=== PATIENT | male | born 1935 | race Caucasian/White ===

== ENCOUNTER 2017-06-13 10:09 | Day surgery (SDC) | payer MEDICARE, BC ==
[~2017-06-13 10:09] MED LIST: Lactated Ringers 1,000 ML IV SCH; Propofol 200 MG/20 ML SDV ONE
--- NOTE | 2017-06-13 11:09 | PCM.PREANE ---
Preanesthetic Assessment - Anesthesia/Transfusion/Family Hx Anesthesia History: Prior Anesthesia Without Reaction Family History of Anesthesia Reaction: No Transfusion History: No Prior Transfusion(s) - Review of Systems General: No Symptoms Pulmonary: No Symptoms Cardiovascular: No Symptoms Gastrointestinal: Hematochezia Neurological: No Symptoms Other: Reports: None - Physical Assessment NPO Status Date: 06/12/17 Height: 1.78 m Weight: 128.82 kg ASA Class: 2 Mental Status: Alert & Oriented x3 Airway Class: Mallampati = 2 Dentition: Reports: Broken Tooth/Teeth (chipped central maxillary incisor) ROM/Head Extension: Full Lungs: Clear to Auscultation, Normal Respiratory Effort Cardiovascular: Regular Rate, Regular Rhythm - Allergies Allergies/Adverse Reactions: Allergies Allergy/AdvReac Type Severity Reaction Status Date / Time No Known Allergies Allergy Verified 02/16/14 18:33 - Acknowledgements Anesthesia Type Planned: MAC Pt an Appropriate Candidate for the Planned Anesthesia: Yes Alternatives and Risks of Anesthesia Discussed w Pt/Guardian: Yes Pt/Guardian Understands and Agrees with Anesthesia Plan: Yes PreAnesthesia Questionnaire HEENT History: Reports: Hard of Hearing, Other (See Below) Other HEENT History: wears glasses Cardiovascular History: Reports: High Cholesterol, Hypertension, Other (See Below) Other Cardiovascular History: peripheral edema Gastrointestinal History: Reports: Colon Polyp Genitourinary History: Reports: BPH 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, Peripheral Endocrine/Metabolic History: Reports: Diabetes, Type II, Obesity/BMI 30+ Oncologic (Cancer) History: Reports: Basal Cell Carcinoma Dermatologic History: Reports: Other (See Below) Other Dermatologic History: stasis dermatitis - Past Surgical History Head Surgeries/Procedures: Reports: None HEENT Surgical History: Reports: Naso-Sinus Surgery GI Surgical History: Reports: Appendectomy, Colonoscopy Dermatological Surgical History: Reports: Skin Biopsy - SUBSTANCE USE Smoking Status *Q: Never Smoker Days Per Week of Alcohol Use: 0 Recreational Drug Use History: No - HOME MEDS Home Medications: Home Meds Finasteride [Proscar] 5 mg PO DAILY 02/16/14 [History] Furosemide [Lasix] 0.5 - 2 tab PO ASDIRECTED PRN 02/16/14 [History] Losartan [Cozaar] 25 mg PO DAILY 02/16/14 [History] Pravastatin Sodium [Pravastatin (Pravachol)] 40 mg PO DAILY 02/16/14 [History] Tamsulosin [Tamsulosin 24 Hr] 0.4 mg PO DAILY 02/16/14 [History] Triamcinolone Acetonide [Triamcinolone Acetonide 0.1% Crm] 1 applic TOP ASDIRECTED PRN 02/16/14 [History] metFORMIN [metFORMIN XR] 500 mg PO BIDM 02/16/14 [History] Metoprolol Succinate 50 mg PO DAILY 06/10/17 [History] Potassium Chloride 20 meq PO ASDIRECTED 06/10/17 [History] - CURRENT (IN HOUSE) MEDS Current Meds: Current Medications Lactated Ringer's (Ringers, Lactated) 1,000 mls @ 125 mls/hr IV ASDIRECTED BENI Last Admin: 06/13/17 10:38 Dose: 125 mls/hr Discontinued Medications Lidocaine HCl (Xylocaine-Mpf 1%) Confirm Administered Dose 5 ml .ROUTE .STK-MED ONE Stop: 06/13/17 09:12 Propofol (Diprivan 20 Ml) Confirm Administered Dose 400 mg .ROUTE .STK-MED ONE Stop: 06/13/17 09:12
--- NOTE | 2017-06-13 12:09 | PCM.OPNOTE ---
- General Post-Op/Procedure Note Date of Surgery/Procedure: 06/13/17 Operative Procedure(s): Colonoscopy Pre Op Diagnosis: Intermittent rectal bleeding. Personal history of colon polyps Anesthesia Technique: MAC (ASA II) Primary Surgeon: Edgardo Silveira Condition: Good Free Text/Narrative:: Dictation [id number] CPT CODE [id number]
--- NOTE | 2017-06-13 12:13 | PCM.POSTAN ---
POST ANESTHESIA ASSESSMENT - MENTAL STATUS Mental Status: Alert, Oriented - RESPIRATORY Respiratory Status: Respiratory Rate WNL, Airway Patent, O2 Saturation Stable - CARDIOVASCULAR CV Status: Pulse Rate WNL, Blood Pressure Stable - GASTROINTESTINAL GI Status: No Symptoms - POST OP HYDRATION Hydration Status: Adequate & Stable
[2017-06-13] MEDS ORDERED: Lactated Ringers 1,000 ML IV SCH (12:15)
[2017-06-13 12:46] VITALS: BP 140/77
--- NOTE | 2017-06-13 17:53 | OR ---
SURGEON: Edgardo Silveira M.D. DATE OF PROCEDURE: 06/13/2017 OPERATION PERFORMED: Colonoscopy. ANESTHESIA: MAC. ASA CLASSIFICATION: II. PREOPERATIVE DIAGNOSES: 1. Intermittent rectal bleeding. 2. Personal history of colon polyps. POSTOPERATIVE DIAGNOSIS: Sigmoid diverticulosis. DESCRIPTION OF PROCEDURE: The patient was taken to the endoscopy room and positioned on the endoscopy table in the left lateral decubitus position. Time-out was called for appropriate identification of the patient and procedure. Monitored anesthesia care was provided. The colonoscope was inserted into the rectum and advanced with minimal difficulty to the cecum, where the colonoscope was retroflexed to visualize the ascending colon from below. The colonoscope was then straightened and slowly withdrawn. The cecum, ascending colon, hepatic flexure, transverse colon, splenic flexure, and descending colon showed no tumors, polyps, diverticula, or angiodysplastic changes. Once the colonoscope was withdrawn to the sigmoid colon, one could see significant diverticular change. No stricture, spasm, or bleeding was noted. No sigmoid polyps were encountered. The colonoscope was withdrawn to the rectum and retroflexed to visualize the anal orifice from above. Again, no tumors or polyps were seen and there were no acute hemorrhoidal changes. The colonoscope was then straightened, the rectum aspirated, and the colonoscope removed. The patient tolerated the procedure well and was taken to recovery room in stable condition. DRE RENAE /[id number]
== END 2017-06-13 12:45 | disposition home or self-care (01) ==
LOC: MW.SDS 10:09
PROVIDERS: ATTEND Surgery
DX: K57.30 Diverticulosis of large intestine without perforation or abscess without bleeding (principal); Z86.010 Personal history of colon polyps; E11.42 Type 2 diabetes mellitus with diabetic polyneuropathy; E11.69 Type 2 diabetes mellitus with other specified complication; E78.5 Hyperlipidemia, unspecified; I10 Essential (primary) hypertension; N40.0 Benign prostatic hyperplasia without lower urinary tract symptoms; E66.9 Obesity, unspecified; Z85.828 Personal history of other malignant neoplasm of skin; Z79.84 Long term (current) use of oral hypoglycemic drugs; Z79.899 Other long term (current) drug therapy; Z90.49 Acquired absence of other specified parts of digestive tract; Z98.890 Other specified postprocedural states; Z68.41 Body mass index [BMI] 40.0-44.9, adult
CPT/HCPCS: 45378; J7120; 00810; J2704

== ENCOUNTER 2017-08-18 15:56 | Emergency (ER) | payer MEDICARE, BC ==
[2017-08-18] MEDS ORDERED: Lidocaine 1% 20 ML MDV INJECT ONE (18:08)
[2017-08-18] MEDS ORDERED: Diphtheria,Pertussis(Acell),Tetanus Vaccine 0.5 ML Syringe IM ONE (18:08)
--- NOTE | 2017-08-18 18:11 | EDM.PDOC ---
ED HPI GENERAL MEDICAL PROBLEM - General Chief Complaint: Laceration Stated Complaint: CUT ON FINGERS Time Seen by Provider: 08/18/17 18:09 Source of Information: Reports: Patient History Limitations: Reports: No Limitations - History of Present Illness INITIAL COMMENTS - FREE TEXT/NARRATIVE: HISTORY AND PHYSICAL: History of present illness: Patient is a 81-year-old male who presents to the emergency room with a crush injury to the left second digit. He states he was closing the garage door and his finger got pinched in the closing mechanism. Has a laceration/skin tear to the third distal digit and second distal digit, both near the nailbed. Open laceration to the pad of the second digit. Bleeding is controlled with pressure. Review of systems: As per history of present illness and below otherwise all systems reviewed and negative. Past medical history: As per history of present illness and as reviewed below otherwise noncontributory. Surgical history: As per history of present illness and as reviewed below otherwise noncontributory. Social history: No reported history of drug or alcohol abuse. Family history: As per history of present illness and as reviewed below otherwise noncontributory. Physical exam: Gen.: Well-developed and well-nourished 81-year-old male. Alert and oriented. Appears in no acute distress. HEENT: Atraumatic, normocephalic, pupils reactive, negative for conjunctival pallor or scleral icterus, mucous membranes moist, throat clear, neck supple, nontender, trachea midline. Lungs: Clear to auscultation, breath sounds equal bilaterally, chest nontender. Heart: S1S2, regular rate and rhythm Abdomen: Soft, nondistended, nontender. Negative for masses or hepatosplenomegaly. Negative for costovertebral tenderness. Extremities: Moves all extremities per self. All digits have good flexion and extension. He is able to push against my fingertip appropriately and resist force against my finger as well. The nailbeds are intact to all digits, although has discoloration to the bed of the nail on #2 and #3. Capillary refill is less than 3 seconds. Radial pulses bilaterally. Able to close his fist and extend. Neurovascular unremarkable. Denies any numbness or tingling to the digits. Skin: Second digit: He has a 1 cm skin tear low the nailbed, nonsuturable, nonbleeding. There is a vertical 1.5 cm laceration to the lateral finger, palmar side. Extending from the 1.5 cm there is a diagonal laceration that wraps up towards the distal finger measuring 2 cm, open. Neuro: Awake, alert, oriented. Cranial nerves II through XII unremarkable. Cerebellum unremarkable. Motor and sensory unremarkable throughout. Exam nonfocal. Patient is soaking his finger/hand and chlorhexidine/normal saline. 1800- I did contact Dr. Carmel Peck to consult on this patient. She states it is fine to close the wound with sutures, providing a bulky dressing, antibiotic prophylaxis. She states she will see him in the clinic tomorrow for reevaluation. Keflex 500 mg, 1 tab twice daily 10 days. Norflex 5/325 grams 1 tab every 4-6 hours as needed for pain, dispense 20-refills. Dr. Peck will see the patient tomorrow in the clinic. I reviewed with the patient signs and symptoms of infection. He voices understanding and will follow up with [facility] tomorrow. He denies any further questions at this time. Diagnostics: X-ray of left hand Therapeutics: Tdap, 1% lidocaine, nonstick dressing with cage splint A digital block was performed with 1% lidocaine at the base of the second digit. Area was irrigated with wound wash and cleansed with chlorhexidine. Chromic gut, 5-0 small needle was used (per Dr. Peck's recommendation). 9 interrupted sutures were placed. Steri-Strips were placed to the suprafascial lacerations/skin tear to the nailbed on digit #2 and digit #3. Nonstick dressing is applied to both digit #2 and digit #3. A cage splint was applied to digit #2. Impression: Open tuft fracture, left second digit Plan: 1. Please take your antibiotic as prescribed. Keflex 500 mg, 1 tab twice daily 10 days. Keep the wound clean and dry. The dressing that was placed today in the ER, please keep this on until evaluated by our hand surgeon, Dr. Peck. She would like to see you tomorrow in clinic. Her office is located [facility]. Her nurse, Bambi will call you in the morning for an appointment time. If you do not hear from her please call the number that has been given to you to set up this time. 2. [place] 5/325mg 1 tab every 4-6 hours as needed for pain. This medication will make you drowsy so do not take it while needing to be functioning at work or while driving. He may take ibuprofen for pain management. 3. Please return to the ED as needed and as discussed. Definitive disposition and diagnosis as appropriate pending reevaluation and review of above. Onset: Today Duration: Hour(s): Location: Reports: Upper Extremity, Left left 2-4th digit Pain Score (Numeric/FACES): 8 - Related Data Allergies Allergy/AdvReac Type Severity Reaction Status Date / Time No Known Allergies Allergy Verified 08/18/17 16:20 Home Meds: Home Meds Finasteride [Proscar] 5 mg PO DAILY 02/16/14 [History] Furosemide [Lasix] 0.5 - 2 tab PO ASDIRECTED PRN 02/16/14 [History] Losartan [Cozaar] 25 mg PO DAILY 02/16/14 [History] Pravastatin Sodium [Pravastatin (Pravachol)] 40 mg PO DAILY 02/16/14 [History] Tamsulosin [Tamsulosin 24 Hr] 0.4 mg PO DAILY 02/16/14 [History] Triamcinolone Acetonide [Triamcinolone Acetonide 0.1% Crm] 1 applic TOP ASDIRECTED PRN 02/16/14 [History] metFORMIN [metFORMIN XR] 500 mg PO BIDM 02/16/14 [History] Metoprolol Succinate 50 mg PO DAILY 06/10/17 [History] Potassium Chloride 20 meq PO ASDIRECTED 06/10/17 [History] Past Medical History HEENT History: Reports: Hard of Hearing, Other (See Below) Other HEENT History: wears glasses Cardiovascular History: Reports: High Cholesterol, Hypertension, Other (See Below) Other Cardiovascular History: peripheral edema Gastrointestinal History: Reports: Colon Polyp Genitourinary History: Reports: BPH 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, Peripheral Endocrine/Metabolic History: Reports: Diabetes, Type II, Obesity/BMI 30+ Oncologic (Cancer) History: Reports: Basal Cell Carcinoma Dermatologic History: Reports: Other (See Below) Other Dermatologic History: stasis dermatitis - Past Surgical History Head Surgeries/Procedures: Reports: None HEENT Surgical History: Reports: Naso-Sinus Surgery GI Surgical History: Reports: Appendectomy, Colonoscopy Dermatological Surgical History: Reports: Skin Biopsy Social & Family History - Tobacco Use Smoking Status *Q: Never Smoker - Caffeine Use Caffeine Use: Reports: Soda - Alcohol Use Days Per Week of Alcohol Use: 0 - Recreational Drug Use Recreational Drug Use: No ED ROS GENERAL - Review of Systems Review Of Systems: ROS reveals no pertinent complaints other than HPI. ED EXAM, SKIN/RASH Exam: See Below (See dictation) ED SKIN PROCEDURES - Laceration/Wound Repair Left Hand Appearance: Linear Anesthetic Type: Digital Local Anesthesia - Lidocaine (Xylocaine): 1% Plain Local Anesthetic Volume: 5cc Skin Prep: Chlorhexidine (Hibiciens), Saline, Sterile Drape, Other (Wound wash) Exploration/Debridement/Repair: Wound Explored, In a Bloodless Field, No Foreign Material Found Closed with: Sutures Suture Size: other (5-0) Suture Type: Other (Chromic) Course - Vital Signs Last Recorded V/S: Last Vital Signs Temp 98.4 F 08/18/17 16:21 Pulse 61 08/18/17 16:21 Resp 18 08/18/17 16:21 BP 176/84 H 08/18/17 16:21 Pulse Ox 95 08/18/17 16:21 - Orders/Labs/Meds Orders: Active Orders 24 hr Category Date Time Status Communication Order [RC] STAT Care 08/18/17 18:08 Ordered Vaccines to be Administered [RC] PER UNIT ROUTINE Care 08/18/17 18:09 Ordered Hand Comp Min 3V Lt [CR] Stat Exams 08/18/17 16:27 Taken Meds: Medications Discontinued Medications Generic Name Dose Route Start Last Admin Trade Name Roosevelt PRN Reason Stop Dose Admin Diphtheria/Tetanus/Acell Pertussis 0.5 ml 08/18/17 18:08 Adacel IM 08/18/17 18:09 .ONCE ONE Lidocaine HCl 20 ml 08/18/17 18:08 Xylocaine 1% INJECT 08/18/17 18:09 ONETIME ONE Departure - Departure Time of Disposition: 18:58 Disposition: Home, Self-Care 01 Clinical Impression: Open fracture of tuft of distal phalanx of finger - Discharge Information Referrals: Akira Bauer MD [Primary Care Provider] - Forms: ED Department Discharge Additional Instructions: My general discharge The following information is given to patients seen in the emergency department who are being discharged to home. This information is to outline your options for follow-up care. We provide all patients seen in our emergency department with a follow-up referral. The need for follow-up, as well as the timing and circumstances, are variable depending upon the specifics of your emergency department visit. If you don't have a primary care physician on staff, we will provide you with a referral. We always advise you to contact your personal physician following an emergency department visit to inform them of the circumstance of the visit and for follow-up with them and/or the need for any referrals to a consulting specialist. The emergency department will also refer you to a specialist when appropriate. This referral assures that you have the opportunity for follow-up care with a specialist. All of these measure are taken in an effort to provide you with optimal care, which includes your follow-up. Under all circumstances we always encourage you to contact your private physician who remains a resource for coordinating your care. When calling for follow-up care, please make the office aware that this follow-up is from your recent emergency room visit. If for any reason you are refused follow-up, please contact the [facility] Emergency Department at and asked to speak to the emergency department charge nurse. [facility] - Plastic Surgery [address], [address] [place] [address] 1. Please take your antibiotic as prescribed. Keflex 500 mg, 1 tab twice daily 10 days. Keep the wound clean and dry. The dressing that was placed today in the ER, please keep this on until evaluated by our hand surgeon, Dr. Peck. She would like to see you tomorrow in clinic. [facility] Her nurse, Bambi will call you in the morning for an appointment time. If you do not hear from her please call the number that has been given to you to set up this time. 2. [place] 5/325mg 1 tab every 4-6 hours as needed for pain. This medication will make you drowsy so do not take it while needing to be functioning at work or while driving. He may take ibuprofen for pain management. 3. Please return to the ED as needed and as discussed. - My Orders Last 24 Hours: My Active Orders 08/18/17 16:27 Hand Comp Min 3V Lt [CR] Stat 08/18/17 18:08 Communication Order [RC] STAT 08/18/17 18:09 Vaccines to be Administered [RC] PER UNIT ROUTINE - Assessment/Plan Last 24 Hours: My Active Orders 08/18/17 16:27 Hand Comp Min 3V Lt [CR] Stat 08/18/17 18:08 Communication Order [RC] STAT 08/18/17 18:09 Vaccines to be Administered [RC] PER UNIT ROUTINE
[2017-08-18 20:09] VITALS: BP 140/82
--- NOTE | 2017-08-19 15:28 | CR ---
EXAM DATE: 08/18/17 PATIENT'S AGE: 81 Patient: [facility] Facility: [place], [place] Site . Site : [id number] Study: XRay Extremity Left hand [id number]/18/[id number] 5:12:30 PM Ordering Physician: Doctor Garcia Final Report: HISTORY: Crush injury to the distal 2nd, 3rd and 4th fingers. FINDINGS: Three views of left hand demonstrate a ring on the 4th finger. There is mild decreased joint space between the carpals. Decreased joint space mild spurring is seen at the 1st metacarpophalangeal joint and interphalangeal joint of the thumb as well as scattered throughout the interphalangeal joints of the fingers. There is a lucency seen through the proximal epiphysis of the middle phalanx of the 2nd finger along the radial aspect. This appears well corticated. There is an acute transverse fracture seen through the distal tuft of the index finger with trace dorsal displacement of the distal fracture fragment. There is soft tissue defect of the distal 3rd finger. The 3rd and 4th fingers appear intact. IMPRESSION: Transverse minimally displaced fracture through the distal tuft of the 2nd finger. Dictated by Migdalia Vasquez MD @ 08/18/2017 5:58:29 PM Dictated by: Migdalia Vasquez MD @ 08/18/2017 17:58:38 (Electronic Signature) Report Signed by Proxy. RAFY
== END 2017-08-18 20:19 | disposition home or self-care (01) ==
LOC: MW.ED 15:56
DX: S62.631B Displaced fracture of distal phalanx of left index finger, initial encounter for open fracture (principal); S61.211A Laceration without foreign body of left index finger without damage to nail, initial encounter; Z23 Encounter for immunization; Z79.899 Other long term (current) drug therapy; I10 Essential (primary) hypertension; E11.9 Type 2 diabetes mellitus without complications; Z79.84 Long term (current) use of oral hypoglycemic drugs; E78.00 Pure hypercholesterolemia, unspecified; W23.0XXA Caught, crushed, jammed, or pinched between moving objects, initial encounter
CPT/HCPCS: 12001; 12002; 73130-26-LT; 73130-LT; 90471; 90715; 99283-25; 99284

== ENCOUNTER 2019-08-19 18:30 | Emergency (ER) | payer MEDICARE, BC ==
--- NOTE | 2019-08-19 20:47 | CR ---
HISTORY: Lower leg edema. COMPARISON: 07/21/2019 FINDINGS: A portable erect AP view of the chest was obtained at 20 0 4 hours. The lungs remain clear. No focal or diffuse infiltrates are present. The heart remains normal in size. The mediastinum is normal in appearance. The osseous structures are normal in appearance for the patient`s age. IMPRESSION: Normal portable chest single view. Dictated by Schuyler Donaldson MD @ Aug 19 2019 8:41PM Signed by Dr. Schuyler Donaldson @ Aug 19 2019 8:45PM
--- NOTE | 2019-08-19 21:26 | US ---
INDICATION: Bilateral leg edema and pain TECHNIQUE: : Ultrasound venous duplex lower extremity bilateral. Compression venous exam was performed using guerrero-scale, color Doppler, and spectral Doppler imaging. COMPARISON: Right leg ultrasound June 26, 2010 FINDINGS: Sonographic imaging demonstrates the common femoral, deep femoral, superficial femoral, popliteal, posterior tibial and greater saphenous veins to be fully compressible with normal color Doppler blood flow in both lower extremities. IMPRESSION: Normal bilateral lower extremity venous ultrasound, no sign of deep venous thrombosis. Dictated by Celeste Green MD @ Aug 19 2019 9:24PM Signed by Dr. Celeste Green @ Aug 19 2019 9:24PM
--- NOTE | 2019-08-19 23:58 | EDM.PDOC ---
ED HPI GENERAL MEDICAL PROBLEM - General Chief Complaint: Lower Extremity Injury/Pain Stated Complaint: LEGS CHECKED FOR BLOODCLOTS Time Seen by Provider: 08/19/19 19:38 Source of Information: Reports: Patient History Limitations: Reports: No Limitations - History of Present Illness INITIAL COMMENTS - FREE TEXT/NARRATIVE: 83 year-old gentleman presents emergency room chief complaint of swelling in both legs. Patient has a previous recent surgery and was told to come in and get checked out. Patient complains of left leg is more sore than right leg. Patient currently on Lasix despite that he still having swelling. She denies fever chills nausea or vomiting. Onset: Gradual Duration: Day(s): Location: Reports: Lower Extremity, Left Quality: Reports: Pressure Severity: Mild Improves with: Reports: None Worsens with: Reports: None Associated Symptoms: Reports: No Other Symptoms - Related Data Allergies Allergy/AdvReac Type Severity Reaction Status Date / Time No Known Allergies Allergy Verified 08/19/19 18:55 Home Meds: Home Meds Furosemide [Lasix] 0.5 - 2 tab PO ASDIRECTED PRN 02/16/14 [History] Losartan [Cozaar] 25 mg PO DAILY 02/16/14 [History] Pravastatin Sodium [Pravastatin (Pravachol)] 40 mg PO DAILY 02/16/14 [History] Triamcinolone Acetonide [Triamcinolone Acetonide 0.1% Crm] 1 applic TOP ASDIRECTED PRN 02/16/14 [History] metFORMIN [metFORMIN XR] 500 mg PO BIDM 02/16/14 [History] Metoprolol Succinate 50 mg PO DAILY 06/10/17 [History] Potassium Chloride 20 meq PO ASDIRECTED 06/10/17 [History] Past Medical History HEENT History: Reports: Hard of Hearing, Other (See Below) Other HEENT History: wears glasses Cardiovascular History: Reports: High Cholesterol, Hypertension, Other (See Below) Other Cardiovascular History: peripheral edema Gastrointestinal History: Reports: Colon Polyp Genitourinary History: Reports: BPH 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, Peripheral Endocrine/Metabolic History: Reports: Diabetes, Type II, Obesity/BMI 30+ Oncologic (Cancer) History: Reports: Basal Cell Carcinoma Dermatologic History: Reports: Other (See Below) Other Dermatologic History: stasis dermatitis - Infectious Disease History Infectious Disease History: Reports: Chicken Pox, Measles, Mumps - Past Surgical History Head Surgeries/Procedures: Reports: None HEENT Surgical History: Reports: Naso-Sinus Surgery GI Surgical History: Reports: Appendectomy, Colonoscopy Male Surgical History: Reports: Prostatectomy Dermatological Surgical History: Reports: Skin Biopsy Social & Family History - Family History Family Medical History: Noncontributory - Tobacco Use Smoking Status *Q: Never Smoker - Caffeine Use Caffeine Use: Reports: Coffee - Recreational Drug Use Recreational Drug Use: No Review of Systems - Review of Systems Review Of Systems: See Below Constitutional: Reports: No Symptoms Eyes: Reports: No Symptoms Ears: Reports: No Symptoms Nose: Reports: No Symptoms Mouth/Throat: Reports: No Symptoms Respiratory: Reports: No Symptoms. Denies: Shortness of Breath, Wheezing, Pleuritic Chest Pain Cardiovascular: Reports: No Symptoms GI/Abdominal: Reports: No Symptoms Genitourinary: Reports: No Symptoms Musculoskeletal: Reports: Leg Pain, Other (Swelling in the lower leg) Neurological: Reports: No Symptoms Psychiatric: Reports: No Symptoms ED EXAM, GENERAL - Physical Exam Exam: See Below Exam Limited By: No Limitations General Appearance: Alert, WD/WN, No Apparent Distress Eye Exam: Bilateral Eye: Normal Fundi, Normal Inspection Ear Exam: Bilateral Ear: Auricle Normal, Canal Normal, TM normal Nose: Normal Inspection, Normal Mucosa, No Blood Throat/Mouth: Normal Inspection, Normal Lips, Normal Teeth, Normal Gums, Normal Oropharynx, Normal Voice, No Airway Compromise Head: Atraumatic, Normocephalic Neck: Normal Inspection, Supple, Non-Tender, Full Range of Motion Respiratory/Chest: No Respiratory Distress, Lungs Clear, Normal Breath Sounds Cardiovascular: Normal Peripheral Pulses, Regular Rate, Rhythm, No Edema, No Gallop, No JVD, No Murmur GI/Abdominal: Normal Bowel Sounds, Soft, Non-Tender, No Organomegaly, No Distention, No Abnormal Bruit (Male) Exam: No Hernia, Normal Inspection Back Exam: Normal Inspection Extremities: Pedal Edema. No: Sari's Sign, Increased Warmth Neurological: Alert, Oriented, CN II-XII Intact, Normal Cognition, Normal Gait, Normal Reflexes, No Motor/Sensory Deficits Psychiatric: Normal Affect Skin Exam: Warm Lymphatic: No Adenopathy Course - Vital Signs Last Recorded V/S: Last Vital Signs Temp 98.8 F 08/19/19 19:03 Pulse 82 08/19/19 19:03 Resp 18 08/19/19 19:03 BP 114/95 H 08/19/19 19:03 Pulse Ox 94 L 08/19/19 19:03 - Orders/Labs/Meds Orders: Active Orders 24 hr Category Date Time Status EKG Documentation Completion [RC] STAT Care 08/19/19 19:50 Active CULTURE URINE [RM] Stat Lab 08/19/19 21:50 Received Labs: Laboratory Tests 08/19/19 08/19/19 08/19/19 Range/Units 21:50 22:14 22:14 WBC 12.39 H (4.0-11.0) K/uL RBC 3.84 L (4.50-5.90) M/uL Hgb 12.1 L (13.0-17.0) g/dL Hct 36.9 L (38.0-50.0) % MCV 96.1 (80.0-98.0) fL MCH 31.5 (27.0-32.0) pg MCHC 32.8 (31.0-37.0) g/dL RDW Std Deviation 47.3 (28.0-62.0) fl RDW Coeff of Juan Miguel 14 (11.0-15.0) % Plt Count 291 (150-400) K/uL MPV 10.40 (7.40-12.00) fL Neut % (Auto) 61.6 (48.0-80.0) % Lymph % (Auto) 27.3 (16.0-40.0) % [place] % (Auto) 8.6 (0.0-15.0) % Eos % (Auto) 2.3 (0.0-7.0) % Baso % (Auto) 0.2 (0.0-1.5) % Neut # (Auto) 7.6 H (1.4-5.7) K/uL Lymph # (Auto) 3.4 H (0.6-2.4) K/uL Wallace # (Auto) 1.1 H (0.0-0.8) K/uL Eos # (Auto) 0.3 (0.0-0.7) K/uL Baso # (Auto) 0.0 (0.0-0.1) K/uL Nucleated RBC % 0.0 /100WBC Nucleated RBCs # 0 K/uL Sodium 138 (136-148) mmol/L Potassium 4.0 (3.5-5.1) mmol/L Chloride 101 (98-107) mmol/L Carbon Dioxide 25.0 (21.0-32.0) mmol/L BUN 23 H (7.0-18.0) mg/dL Creatinine 1.3 (0.8-1.3) mg/dL Est Cr Clr Drug Dosing 46.01 mL/min Estimated GFR (MDRD) 53.0 ml/min Glucose 135 H (74-106) mg/dL Calcium 9.1 (8.5-10.1) mg/dL Total Bilirubin 0.3 (0.2-1.0) mg/dL AST 25 (15-37) IU/L ALT 40 (14-63) IU/L Alkaline Phosphatase 88 (46-116) U/L B-Natriuretic Peptide (<100) PG/ML Total Protein 8.4 H (6.4-8.2) g/dL Albumin 4.0 (3.4-5.0) g/dL Globulin 4.4 H (2.6-4.0) g/dL Albumin/Globulin Ratio 0.9 (0.9-1.6) Urine Color YELLOW Urine Appearance CLEAR Urine pH 5.5 (5.0-8.0) Ur Specific [place] >= 1.030 (1.001-1.035) Urine Protein 100 H (NEGATIVE) mg/dL Urine Glucose (UA) NEGATIVE (NEGATIVE) mg/dL Urine Ketones NEGATIVE (NEGATIVE) mg/dL Urine Occult Blood LARGE H (NEGATIVE) Urine Nitrite NEGATIVE (NEGATIVE) Urine Bilirubin NEGATIVE (NEGATIVE) Urine Urobilinogen 0.2 (<2.0) EU/dL Ur Leukocyte Esterase SMALL H (NEGATIVE) Urine RBC 10-15 (0-2/HPF) Urine WBC 3-5 (0-5/HPF) Ur Epithelial Cells RARE (NONE-FEW) Urine Bacteria 1+ H (NEGATIVE) 08/19/19 Range/Units 22:14 WBC (4.0-11.0) K/uL RBC (4.50-5.90) M/uL Hgb (13.0-17.0) g/dL Hct (38.0-50.0) % MCV (80.0-98.0) fL MCH (27.0-32.0) pg MCHC (31.0-37.0) g/dL RDW Std Deviation (28.0-62.0) fl RDW Coeff of Juan Miguel (11.0-15.0) % Plt Count (150-400) K/uL MPV (7.40-12.00) fL Neut % (Auto) (48.0-80.0) % Lymph % (Auto) (16.0-40.0) % Wallace % (Auto) (0.0-15.0) % Eos % (Auto) (0.0-7.0) % Baso % (Auto) (0.0-1.5) % Neut # (Auto) (1.4-5.7) K/uL Lymph # (Auto) (0.6-2.4) K/uL [place] # (Auto) (0.0-0.8) K/uL Eos # (Auto) (0.0-0.7) K/uL Baso # (Auto) (0.0-0.1) K/uL Nucleated RBC % /100WBC Nucleated RBCs # K/uL Sodium (136-148) mmol/L Potassium (3.5-5.1) mmol/L Chloride (98-107) mmol/L Carbon Dioxide (21.0-32.0) mmol/L BUN (7.0-18.0) mg/dL Creatinine (0.8-1.3) mg/dL Est Cr Clr Drug Dosing mL/min Estimated GFR (MDRD) ml/min Glucose (74-106) mg/dL Calcium (8.5-10.1) mg/dL Total Bilirubin (0.2-1.0) mg/dL AST (15-37) IU/L ALT (14-63) IU/L Alkaline Phosphatase (46-116) U/L B-Natriuretic Peptide 26 (<100) PG/ML Total Protein (6.4-8.2) g/dL Albumin (3.4-5.0) g/dL Globulin (2.6-4.0) g/dL Albumin/Globulin Ratio (0.9-1.6) Urine Color Urine Appearance Urine pH (5.0-8.0) Ur Specific [place] (1.001-1.035) Urine Protein (NEGATIVE) mg/dL Urine Glucose (UA) (NEGATIVE) mg/dL Urine Ketones (NEGATIVE) mg/dL Urine Occult Blood (NEGATIVE) Urine Nitrite (NEGATIVE) Urine Bilirubin (NEGATIVE) Urine Urobilinogen (<2.0) EU/dL Ur Leukocyte Esterase (NEGATIVE) Urine RBC (0-2/HPF) Urine WBC (0-5/HPF) Ur Epithelial Cells (NONE-FEW) Urine Bacteria (NEGATIVE) Departure - Departure Time of Disposition: 00:01 Disposition: Home, Self-Care 01 Condition: Good Clinical Impression: Pedal edema - Discharge Information *PRESCRIPTION DRUG MONITORING PROGRAM REVIEWED*: No Instructions: Peripheral Edema, Edema, [id number] Referrals: Akira Bauer MD [Primary Care Provider] - Sepsis Event Note - Evaluation Sepsis Screening Result: No Definite Risk - Focused Exam Vital Signs: Vital Signs Temp Pulse Resp BP Pulse Ox 08/19/19 19:03 98.8 F 82 18 114/95 H 94 L Date Exam was Performed: 08/19/19 Time Exam was Performed: 23:52
[2019-08-20 01:10] VITALS: BP 139/61; PULSE 84
== END 2019-08-20 00:24 | disposition home or self-care (01) ==
LOC: MW.ED 18:30
DX: R60.0 Localized edema (principal); I10 Essential (primary) hypertension; E11.42 Type 2 diabetes mellitus with diabetic polyneuropathy; E78.00 Pure hypercholesterolemia, unspecified; E66.9 Obesity, unspecified; Z68.38 Body mass index [BMI] 38.0-38.9, adult; Z79.899 Other long term (current) drug therapy; Z79.84 Long term (current) use of oral hypoglycemic drugs
CPT/HCPCS: 36415; 71045; 71045-26; 80053; 81001; 83880; 85025; 87086; 93005; 93970; 93970-26; 99284-25

== ENCOUNTER 2019-11-13 17:09 | Emergency (ER) | payer MEDICARE, BC ==
--- NOTE | 2019-11-13 17:55 | EDM.PDOC ---
ED HPI GENERAL MEDICAL PROBLEM - General Chief Complaint: Abdominal Pain Stated Complaint: ABD LOWER RIGHT PAIN Time Seen by Provider: 11/13/19 17:15 Source of Information: Reports: Patient History Limitations: Reports: No Limitations - History of Present Illness INITIAL COMMENTS - FREE TEXT/NARRATIVE: HISTORY OF PRESENT ILLNESS: Patient is a 84-year-old male who presents the ER with abdominal pain. Patient has 3 day history of RUQ pain (triage states RLQ, but points to his RUQ) . Pain is intermittent and 8/10 when it occurs, presently 0/10. States pain will occasionally wrap around to his back. Denies any alcohol use or history of gallstones. Denies any present pain. Denies any nausea, vomiting, diarrhea, or constipation. No melena or hematochezia. No urinary symptoms. No chest pain or dyspnea. No syncope. No rash. Patient has history of appendectomy. REVIEW OF SYSTEMS: Other than the symptoms associated with the present events, the following is reported with regard to recent health: General: (-) fever. HENT: (-) congestion. Respiratory: (-) cough. Cardiovascular: (-) chest pain. GI: (+) abdominal pain. : (-) urinary complaints. Musculoskeletal: (-) other aches or pains. Endocrine: (-) generalized weakness. Neurological: (-) localized weakness. Skin: (-) rash PAST MEDICAL HISTORY: reviewed as per nursing notes SOCIAL HISTORY: reviewed as per nursing notes, MEDICATIONS: Per nurse's note ALLERGIES: Per nurse's note, reviewed by me PHYSICAL EXAMINATION: GENERALIZED APPEARANCE: well developed, well nourished in no distress VITAL SIGNS: Per nurse's note, reviewed by me SKIN: Warm, dry; (-) cyanosis; (-) rash. HEAD: (-) scalp swelling, (-) tenderness. EYES: (-) conjunctival pallor, (-) scleral icterus. ENMT: (-) stridor; mucous membranes moist. NECK: (-) tenderness, (-) stiffness, CHEST AND RESPIRATORY: (-) rales, (-) rhonchi, (-) wheezes; breath sounds equal bilaterally. HEART AND CARDIOVASCULAR: (-) irregularity; (-) murmur, (-) gallop. ABDOMEN AND GI: Soft; (+)midepigastric and RUQ tenderness, (-) RLQ tenderness. (-) flank tenderness (-) guarding, (-) rebound, (-) palpable masses , (-) CVAT NEURO AND PSYCH: Alert. Cranial nerves grossly intact; strength symmetric. gait steady DIAGNOSTICS: CT abd/pelvis: as read by radiologist, reviewed by myself EKG: nsr at [address] elevation. Labs ordered and reviewed by myself. EMERGENCY DEPARTMENT COURSE AND TREATMENT: Patient's condition remained stable during Emergency Department evaluation. Seen and evaluated at bedside. He currently denies any pain and therefore no pain medications were ordered at this time. Labs and diagnostics were ordered. UA borderline, pt asymptomatic, will await culture. The patient presents to the ED with abdominal pain. After history, physical exam, and diagnostic evaluation, the etiology for the pain is unclear. Laboratory data was ordered. On serial exams, there are no peritoneal signs. Abdomen is soft without guarding or rebound. I think there is a very low probability of significant abdominal pathology based on today's evaluation. The patient is advised to have a followup tomorrow for a recheck and repeat abdominal exam. I also advised to return to the emergency department immediately for significant pain, fevers, not tolerating oral food or fluid, or new complaints. PLAN AND FOLLOW-UP: Patient to follow-up with PCP in 1 to 2 days. Return immediately with any change in duration, severity, or character of abdominal pain or any new or worsening symptoms. Patient given discharge precautions. Expressed verbal understanding. RLQ Pain Score (Numeric/FACES): 8 - Related Data Allergies Allergy/AdvReac Type Severity Reaction Status Date / Time levofloxacin Allergy Other Verified 11/13/19 17:33 nitrofurantoin Allergy Other Verified 11/13/19 17:33 [From Macrobid] sulfamethoxazole Allergy Other Verified 11/13/19 17:33 [From Septra] trimethoprim [From Septra] Allergy Other Verified 11/13/19 17:33 Home Meds: Home Meds Furosemide [Lasix] 40 mg PO BID 02/16/14 [History] Losartan [Cozaar] 25 mg PO DAILY 02/16/14 [History] Pravastatin Sodium [Pravastatin (Pravachol)] 40 mg PO DAILY 02/16/14 [History] metFORMIN [metFORMIN XR] 500 mg PO BIDM 02/16/14 [History] Metoprolol Succinate 50 mg PO DAILY 06/10/17 [History] Potassium Chloride 10 meq PO ASDIRECTED 06/10/17 [History] Aspirin [Lo-Dose Aspirin EC] 81 mg PO DAILY 11/13/19 [History] B-Complex with Vitamin C [Super B Complex-Vitamin C] 1 tab PO DAILY 11/13/19 [ History] Cholecalciferol (Vitamin D3) [Vitamin D3] 2,000 unit PO DAILY 11/13/19 [History] Cyanocobalamin (Vitamin B12) [Vitamin B12] 1,000 mcg PO DAILY 11/13/19 [History] Multivitamin [Multiple Vitamins] 1 each PO DAILY 11/13/19 [History] Past Medical History HEENT History: Reports: Hard of Hearing, Other (See Below) Other HEENT History: wears glasses Cardiovascular History: Reports: High Cholesterol, Hypertension, Other (See Below) Other Cardiovascular History: peripheral edema Gastrointestinal History: Reports: Colon Polyp Genitourinary History: Reports: BPH 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, Peripheral Endocrine/Metabolic History: Reports: Diabetes, Type II, Obesity/BMI 30+ Oncologic (Cancer) History: Reports: Basal Cell Carcinoma Dermatologic History: Reports: Other (See Below) Other Dermatologic History: stasis dermatitis - Infectious Disease History Infectious Disease History: Reports: Chicken Pox, Measles, Mumps - Past Surgical History Head Surgeries/Procedures: Reports: None HEENT Surgical History: Reports: Naso-Sinus Surgery, Tonsillectomy GI Surgical History: Reports: Appendectomy, Colonoscopy Male Surgical History: Reports: Other (See Below) Other Male Surgeries/Procedures: HOLUP - Prostate sx Dermatological Surgical History: Reports: Skin Biopsy Social & Family History - Family History Family Medical History: Noncontributory - Tobacco Use Smoking Status *Q: Never Smoker - Caffeine Use Caffeine Use: Reports: Coffee - Recreational Drug Use Recreational Drug Use: No ED ROS GENERAL - Review of Systems Review Of Systems: See Below (see dictation) ED EXAM, GI/ABD - Physical Exam Exam: See Below (see dictation) Course - Vital Signs Last Recorded V/S: Last Vital Signs Temp 96.7 F L 11/13/19 18:05 Pulse 60 11/13/19 19:30 Resp 16 11/13/19 19:30 BP 170/91 H 11/13/19 19:30 Pulse Ox 97 11/13/19 19:30 - Orders/Labs/Meds Labs: Laboratory Tests 11/13/19 11/13/19 11/13/19 Range/Units 18:00 18:00 18:49 WBC 8.47 (4.0-11.0) K/uL RBC 4.32 L (4.50-5.90) M/uL Hgb 13.5 (13.0-17.0) g/dL Hct 41.5 (38.0-50.0) % MCV 96.1 (80.0-98.0) fL MCH 31.3 (27.0-32.0) pg MCHC 32.5 (31.0-37.0) g/dL RDW Std Deviation 46.2 (28.0-62.0) fl RDW Coeff of Juan Miguel 13 (11.0-15.0) % Plt Count 237 (150-400) K/uL MPV 10.80 (7.40-12.00) fL Neut % (Auto) 53.1 (48.0-80.0) % Lymph % (Auto) 35.4 (16.0-40.0) % [place] % (Auto) 8.6 (0.0-15.0) % Eos % (Auto) 2.7 (0.0-7.0) % Baso % (Auto) 0.2 (0.0-1.5) % Neut # (Auto) 4.5 (1.4-5.7) K/uL Lymph # (Auto) 3.0 H (0.6-2.4) K/uL [place] # (Auto) 0.7 (0.0-0.8) K/uL Eos # (Auto) 0.2 (0.0-0.7) K/uL Baso # (Auto) 0.0 (0.0-0.1) K/uL Nucleated RBC % 0.0 /100WBC Nucleated RBCs # 0 K/uL Sodium 140 (136-148) mmol/L Potassium 4.0 (3.5-5.1) mmol/L Chloride 102 (98-107) mmol/L Carbon Dioxide 28.2 (21.0-32.0) mmol/L BUN 20 H (7.0-18.0) mg/dL Creatinine 1.2 (0.8-1.3) mg/dL Est Cr Clr Drug Dosing 49.00 mL/min Estimated GFR (MDRD) 58.0 ml/min Glucose 125 H (74-106) mg/dL Calcium 8.9 (8.5-10.1) mg/dL Total Bilirubin 0.4 (0.2-1.0) mg/dL AST 19 (15-37) IU/L ALT 32 (14-63) IU/L Alkaline Phosphatase 84 (46-116) U/L Total Protein 7.7 (6.4-8.2) g/dL Albumin 3.9 (3.4-5.0) g/dL Globulin 3.8 (2.6-4.0) g/dL Albumin/Globulin Ratio 1.0 (0.9-1.6) Lipase 142 (73-393) U/L Urine Color YELLOW Urine Appearance SLT CLOUDY Urine pH 6.0 (5.0-8.0) Ur Specific [place] 1.015 (1.001-1.035) Urine Protein NEGATIVE (NEGATIVE) mg/dL Urine Glucose (UA) NEGATIVE (NEGATIVE) mg/dL Urine Ketones NEGATIVE (NEGATIVE) mg/dL Urine Occult Blood NEGATIVE (NEGATIVE) Urine Nitrite NEGATIVE (NEGATIVE) Urine Bilirubin NEGATIVE (NEGATIVE) Urine Urobilinogen 0.2 (<2.0) EU/dL Ur Leukocyte Esterase TRACE H (NEGATIVE) Urine RBC 0-1 (0-2/HPF) Urine WBC 12-15 (0-5/HPF) Ur Epithelial Cells RARE (NONE-FEW) Urine Bacteria RARE (NEGATIVE) Meds: Medications Discontinued Medications Generic Name Dose Route Start Last Admin Trade Name Edmundoq PRN Reason Stop Dose Admin Iopamidol 100 ml 11/13/19 18:56 Isovue Multipack-370 (76%) IVPUSH 11/13/19 18:57 ONETIME STA Departure - Departure Time of Disposition: 19:13 Disposition: Home, Self-Care 01 Condition: Good Clinical Impression: Abdominal pain - Discharge Information *PRESCRIPTION DRUG MONITORING PROGRAM REVIEWED*: Not Applicable *COPY OF PRESCRIPTION DRUG MONITORING REPORT IN PATIENT BRENDA: Not Applicable Instructions: Abdominal Pain, Adult Referrals: Akira Bauer MD [Primary Care Provider] - 2 Days Forms: ED Department Discharge Additional Instructions: The following information is given to patients seen in the emergency department who are being discharged to home. This information is to outline your options for follow-up care. We provide all patients seen in our emergency department with a follow-up referral. The need for follow-up, as well as the timing and circumstances, are variable depending upon the specifics of your emergency department visit. If you don't have a primary care physician on staff, we will provide you with a referral. We always advise you to contact your personal physician following an emergency department visit to inform them of the circumstance of the visit and for follow-up with them and/or the need for any referrals to a consulting specialist. The emergency department will also refer you to a specialist when appropriate. This referral assures that you have the opportunity for follow-up care with a specialist. All of these measure are taken in an effort to provide you with optimal care, which includes your follow-up. Under all circumstances we always encourage you to contact your private physician who remains a resource for coordinating your care. When calling for follow-up care, please make the office aware that this follow-up is from your recent emergency room visit. If for any reason you are refused follow-up, please contact the [facility] Emergency Department at and asked to speak to the emergency department charge nurse. Sepsis Event Note - Evaluation Sepsis Screening Result: No Definite Risk - Focused Exam Date Exam was Performed: 11/16/19 Time Exam was Performed: 19:13
[2019-11-13 18:26] LABS: CARBON DIOXIDE,CO2 28.2 mmol/L (21.0-32.0)
[2019-11-13] MEDS ORDERED: Iopamidol 755 MG/ML 200 ML Multipack Bottle IVPUSH STA (18:56)
--- NOTE | 2019-11-13 19:09 | CT ---
CT abdomen and pelvis Technique: Multiple axial sections were obtained from above the dome of the diaphragm inferiorly through the pubic symphysis. Intravenous contrast was utilized. No oral contrast has been given. Comparison: Prior CT abdomen and pelvis study of 08/14/18. Findings: Visualized lung bases shows scattered areas of scarring and atelectasis. Liver contains no focal abnormality. Spleen appears within normal limits. Adrenal glands show no nodule. Pancreas appears within normal limits. Gallbladder shows layering gallstones which is similar to prior CT exam. Kidneys show symmetric contrast enhancement. Several small low-density lesions are seen within the right kidney believed to represent small cysts which appears stable from previous exam. Aorta shows atherosclerotic calcification without aneurysm. No retroperitoneal adenopathy or mesenteric abnormalities are seen. Appendix not visualized. No pelvic mass or adenopathy is seen. Prostate gland is smaller in size than seen on prior study. There is a low density area within the central prostate gland presumably due to interval TURP defect. No free fluid or inflammatory change is seen. Small bilateral fat-containing inguinal hernias are noted. Bone window settings were reviewed which shows scattered degenerative change within the spine with degenerative apophyseal change and scattered endplate osteophytes. Minimal spondylolisthesis is noted at L4-L5. No acute osseous finding is appreciated. Impression: 1. Multiple findings as noted above which are not acute. Nothing acute is appreciated. Diagnostic code #3 Study was dictated in [place] Standard Time
[2019-11-13 19:39] VITALS: BP 170/91; PULSE 60
== END 2019-11-13 19:38 | disposition home or self-care (01) ==
LOC: MW.ED 17:09
DX: R10.11 Right upper quadrant pain (principal); R10.13 Epigastric pain; E78.00 Pure hypercholesterolemia, unspecified; I10 Essential (primary) hypertension; E11.9 Type 2 diabetes mellitus without complications; E66.9 Obesity, unspecified; Z88.1 Allergy status to other antibiotic agents; Z88.2 Allergy status to sulfonamides; Z79.899 Other long term (current) drug therapy; Z79.84 Long term (current) use of oral hypoglycemic drugs; Z79.82 Long term (current) use of aspirin; Z90.49 Acquired absence of other specified parts of digestive tract; Z68.41 Body mass index [BMI] 40.0-44.9, adult
CPT/HCPCS: 36415; 74177; 74177-26; 80053; 81001; 83690; 85025; 87086; 93005; 99284; 99284-25

== ENCOUNTER 2023-02-23 15:52 | Emergency (ER) | payer MEDICARE, BC ==
[2023-02-23] MEDS ORDERED: Cephalexin 500 MG Cap PO STA (17:45)
[2023-02-23 18:08] VITALS: BP 136/61; PULSE 71
== END 2023-02-23 18:06 | disposition home or self-care (01) ==
LOC: MW.ED 15:52
DX: S91.202A Unspecified open wound of left great toe with damage to nail, initial encounter (principal); L03.032 Cellulitis of left toe; B35.1 Tinea unguium; I10 Essential (primary) hypertension; E11.9 Type 2 diabetes mellitus without complications; E66.9 Obesity, unspecified; Z88.1 Allergy status to other antibiotic agents; Z88.2 Allergy status to sulfonamides; E78.00 Pure hypercholesterolemia, unspecified; Z79.84 Long term (current) use of oral hypoglycemic drugs; Z79.899 Other long term (current) drug therapy; Z68.39 Body mass index [BMI] 39.0-39.9, adult
CPT/HCPCS: 11730; 99283; A9270

== ENCOUNTER 2024-10-25 17:44 | Emergency (ER) | payer MEDICARE, BC ==
[2024-10-25] MEDS ORDERED: Sodium Chloride 0.9% 10 ML Syringe FLUSH PRN (17:54)
[2024-10-25] MEDS ORDERED: Sodium Chloride 0.9% 2.5 ML Syringe FLUSH PRN (17:54)
[2024-10-25 18:04] LABS: BASOPHILS ABSOLUTE AUTO 0.07 K/uL (0.00-0.20); BASOPHILS PERCENT AUTO 0.7 % (0.0-1.0); EOSINOPHILS ABSOLUTE AUTO 0.55 K/uL (0.00-0.45); EOSINOPHILS PERCENT AUTO 5.3 % (0.0-6.0); HEMATOCRIT 38.5 % (42.0-52.0); IMMATURE GRAN ABSOLUTE AUTO 0.02 K/uL (0.00-0.05); IMMATURE GRAN PERCENT AUTO 0.2 % (0.0-0.4); LYMPHOCYTES PERCENT AUTO 28.7 % (24.0-44.0); MEAN CORPUSCULAR HEMOGLOBIN 31.5 pg (28.0-32.0); MEAN CORPUSCULAR HGB CONC 33.8 g/dL (32.0-36.0); MEAN CORPUSCULAR VOLUME 93.2 fL (83.0-99.0); MEAN PLATELET VOLUME 10.1 fL (9.4-12.4); MONOCYTES ABSOLUTE AUTO 0.73 K/uL (0.00-0.80); NEUTROPHILS ABSOLUTE AUTO 6.07 K/uL (1.80-7.70); NEUTROPHILS PERCENT AUTO 58.1 % (41.0-71.0); PLATELET COUNT,PLT 229 K/uL (150-400); RED BLOOD CELL COUNT 4.13 M/uL (4.52-5.90); WHITE BLOOD CELL COUNT,WBC 10.44 K/uL (3.9-11.3)
[2024-10-25 18:26] LABS: ALBUMIN 3.8 g/dL (3.4-5.0); BILIRUBIN TOTAL 0.4 mg/dL (0.2-1.0); CALCIUM 9.3 mg/dL (8.5-10.1); CARBON DIOXIDE,CO2 22.6 mmol/L (21.0-32.0); CREATININE 1.1 mg/dL (0.8-1.3); EST CRCL DRUG DOSING (CG) 49.77 mL/min; POTASSIUM,K 4.1 mmol/L (3.5-5.1); PROTEIN TOTAL,TP 7.6 g/dL (6.4-8.2)
[2024-10-25 19:47] VITALS: PULSE 60
[2024-10-25] MEDS: Ondansetron 4 MG/2 ML SDV IVPUSH STA (20:01)
[2024-10-25] MEDS: Morphine 4 MG/ML Syringe IVPUSH STA (20:02)
[2024-10-25] MEDS: Lidocaine 4% Patch TOP STA (20:55)
[2024-10-25 21:51] VITALS: BP 150/80
== END 2024-10-25 21:52 | disposition home or self-care (01) ==
LOC: MW.ED 17:44
DX: M62.838 Other muscle spasm (principal); I10 Essential (primary) hypertension; E78.00 Pure hypercholesterolemia, unspecified; E11.9 Type 2 diabetes mellitus without complications; E66.9 Obesity, unspecified; Z68.34 Body mass index [BMI] 34.0-34.9, adult; Z90.49 Acquired absence of other specified parts of digestive tract; Z88.8 Allergy status to other drugs, medicaments and biological substances; Z79.84 Long term (current) use of oral hypoglycemic drugs; Z79.82 Long term (current) use of aspirin; Z79.899 Other long term (current) drug therapy; Z75.8 Other problems related to medical facilities and other health care; W18.30XA Fall on same level, unspecified, initial encounter
CPT/HCPCS: 36415; 70450; 71045; 72125; 73502; 73552; 73562; 80053; 83735; 85025; 93005; 96374; 96375; 99284; A9270; J2270; J2405; J3360

== ENCOUNTER 2025-02-11 08:37 | Emergency (ER) | payer MEDICARE, BC ==
[2025-02-11] MEDS ORDERED: Sodium Chloride 0.9% 2.5 ML Syringe FLUSH PRN (08:58)
[2025-02-11] MEDS ORDERED: Sodium Chloride 0.9% 10 ML Syringe FLUSH PRN (08:58)
[2025-02-11] MEDS ORDERED: Sodium Chloride 0.9% 20 ML SDV IV PRN (08:58)
[2025-02-11 09:34] LABS: BASOPHILS ABSOLUTE AUTO 0.03 K/uL (0.00-0.20); BASOPHILS PERCENT AUTO 0.4 % (0.0-1.0); EOSINOPHILS ABSOLUTE AUTO 0.23 K/uL (0.00-0.45); EOSINOPHILS PERCENT AUTO 2.9 % (0.0-6.0); HEMATOCRIT 36.3 % (42.0-52.0); HEMOGLOBIN 12.2 g/dL (14.0-18.0); IMMATURE GRAN ABSOLUTE AUTO 0.01 K/uL (0.00-0.05); IMMATURE GRAN PERCENT AUTO 0.1 % (0.0-0.4); LYMPHOCYTES PERCENT AUTO 27.3 % (24.0-44.0); MEAN CORPUSCULAR HEMOGLOBIN 31.8 pg (28.0-32.0); MEAN CORPUSCULAR HGB CONC 33.6 g/dL (32.0-36.0); MEAN CORPUSCULAR VOLUME 94.5 fL (83.0-99.0); MEAN PLATELET VOLUME 10.7 fL (9.4-12.4); MONOCYTES ABSOLUTE AUTO 0.61 K/uL (0.00-0.80); MONOCYTES PERCENT AUTO 7.6 % (0.0-8.0); NEUTROPHILS ABSOLUTE AUTO 4.99 K/uL (1.80-7.70); NEUTROPHILS PERCENT AUTO 61.7 % (41.0-71.0); PLATELET COUNT,PLT 199 K/uL (150-400); RED BLOOD CELL COUNT 3.84 M/uL (4.52-5.90); WHITE BLOOD CELL COUNT,WBC 8.07 K/uL (3.9-11.3)
[2025-02-11 10:14] LABS: ALBUMIN 3.7 g/dL (3.4-5.0); BILIRUBIN TOTAL 0.4 mg/dL (0.2-1.0); CARBON DIOXIDE,CO2 23.7 mmol/L (21.0-32.0); CREATININE 1.2 mg/dL (0.8-1.3); EST CRCL DRUG DOSING (CG) 44.78 mL/min; POTASSIUM,K 3.9 mmol/L (3.5-5.1); PROTEIN TOTAL,TP 7.3 g/dL (6.4-8.2)
[2025-02-11 10:19] LABS: APPEARANCE,URINE CLEAR; BILIRUBIN,URINE NEGATIVE (NEGATIVE); COLOR,URINE YELLOW; GLUCOSE,URINE NEGATIVE (NEGATIVE); KETONES,URINE NEGATIVE (NEGATIVE); LEUKOCYTE ESTERASE,URINE NEGATIVE (NEGATIVE); NITRITE,URINE NEGATIVE (NEGATIVE); OCCULT BLOOD,URINE NEGATIVE (NEGATIVE); PH,URINE 5.5 (5.0-8.0); PROTEIN,URINE NEGATIVE (NEGATIVE); UROBILINOGEN,URINE 0.2 EU/dL (<2.0)
[2025-02-11 11:00] VITALS: BP 140/74; PULSE 61
== END 2025-02-11 11:00 | disposition home or self-care (01) ==
LOC: MW.ED 08:37
DX: M54.9 Dorsalgia, unspecified (principal); I11.0 Hypertensive heart disease with heart failure; I50.9 Heart failure, unspecified; E78.00 Pure hypercholesterolemia, unspecified; E11.42 Type 2 diabetes mellitus with diabetic polyneuropathy; E66.9 Obesity, unspecified; Z79.84 Long term (current) use of oral hypoglycemic drugs; Z79.899 Other long term (current) drug therapy; Z79.82 Long term (current) use of aspirin; Z68.35 Body mass index [BMI] 35.0-35.9, adult
CPT/HCPCS: 36415; 71045; 71045-26; 74176; 74176-26; 80053; 81003; 83690; 83880; 84484; 85025; 85610; 85730; 99283; 99284